=== PATIENT | male | born 1985 | race Hispanic/Latino ===

== ENCOUNTER 2019-12-12 23:59 | Emergency (ER) | payer SELFPAY ==
--- NOTE | 2019-12-13 02:26 | ER ---
Nurse's Notes [facility] Name: Matthew Huang Jr Age: 34 yrs Sex: Male : 1985 Arrival Date: 12/13/2019 Time: 00:04 Bed Waiting Private MD: Diagnosis: Presentation: 12/12 00:34 Chief complaint: Patient states: In contact with step-brother who is COVID positive; lp1 Vomiting, diarrhea, general body aches x 1 week with shortness of breath. Coronavirus screen: Patient reports a cough. Patient reports shortness of breath or difficulty breathing. Patient reports a measured and/or subjective temperature greater than 100.4F. Patient denies travel on a cruise ship or to a country the [facility] currently lists as an affected area. Patient reports contact with known and/or suspected case of COVID-19. Ebola Screen: No symptoms or risks identified at this time. Risk Assessment: Do you want to hurt yourself or someone else? Patient reports no desire to harm self or others. Onset of symptoms was December 13, 2019. 00:34 Method Of Arrival: Ambulatory lp1 00:34 Acuity: RICH 3 lp1 00:38 Initial Sepsis Screen: Does the patient meet any 2 criteria? No. Patient's initial lp1 sepsis screen is negative. Does the patient have a suspected source of infection? No. Patient's initial sepsis screen is negative. Historical: - Allergies: 00:37 No Known Allergies; lp1 - Home Meds: 00:37 None [Active]; lp1 - PMHx: 00:37 None; lp1 - PSHx: 00:37 None; lp1 - Immunization history:: Adult Immunizations up to date. - Social history:: Smoking status: Patient reports the use of cigarette tobacco products, denies chronic smoking, but will smoke occasionally. Screenin:37 Abuse screen: Denies threats or abuse. Denies injuries from another. Nutritional lp1 screening: No deficits noted. Tuberculosis screening: No symptoms or risk factors identified. Vital Signs: 00:37 BP 122 / 88; Pulse 90; Resp 18; Temp 98.1(O); Pulse Ox 100% on R/A; Weight 88.45 kg lp1 (R); Height 6 ft. 1 in. (185.42 cm); Pain 8/10; 00:37 Body Mass Index 25.73 (88.45 kg, 185.42 cm) lp1 ED Course: 00:04 Patient arrived in ED. cl3 00:36 Triage completed. lp1 00:37 Arm band placed on left wrist. lp1 Administered Medications: No medications were administered Outcome: 02:26 Patient left the ED. lp1 Signatures: Suzy Osorio RN RN lp1 Po Boyd cl3
[2019-12-13 02:48] VITALS: BP 122/88; TEMP 98.1; O2SAT 100
== END 2019-12-13 02:26 | disposition left against medical advice (07) ==
LOC: ER 23:59
DX: R06.02 Shortness of breath (principal); Z53.21 Procedure and treatment not carried out due to patient leaving prior to being seen by health care provider
CPT/HCPCS: 99281